=== PATIENT | female | born 1955 ===

== ENCOUNTER 2018-06-11 07:00 | Day surgery (SDC) | payer OTHER ==
[~2018-06-11 07:00] MED LIST: LOSARTAN-HCTZ1 EAC2 PO; NORVASC5 MG PO
== END 2018-06-11 13:00 | disposition home or self-care (01) ==
LOC: CIR.AMB 07:00 → O/R 15:31 → SURG 15:31 → O/R 16:01
DX: N60.91 Unspecified benign mammary dysplasia of right breast (principal)